=== PATIENT | female | born 1945 | race Caucasian/White ===

== ENCOUNTER 2023-10-19 06:29 | Day surgery (SDC) | payer OTHER, SELFPAY ==
[2023-10-13 10:01] LABS: Hematocrit 42.6 % (37.0-47.0); Hemoglobin 14.2 g/dL (12.0-16.0); Mean Corp Hgb Conc. 33.3 g/dL (33.0-37.0); Mean Corpuscular Hgb 29.3 pg (27.0-31.0); Mean Corpuscular Volume 87.8 fL (81.0-99.0); Mean Platelet Volume 9.3 fL (7.4-10.4); Platelet Count 354 10^3/uL (130-400); Red Blood Cell Count 4.85 10^6/uL (4.20-5.40); Red Cell Dist. Width 14.3 % (11.5-14.5); White Blood Cell Count 7.9 10^3/uL (4.8-10.8)
[2023-10-13 10:33] LABS: Blood Urea Nitrogen 22 mg/dl (7-17); Calcium 10.2 mg/dl (8.4-10.2); Carbon Dioxide 27 mmol/L (22-30); Chloride 100 mmol/L (98-107); Glucose 104 mg/dl (70-99); Potassium 4.8 mmol/L (3.5-5.1); eGFR 58.39
[2023-10-13 10:38] LABS: Sodium 138 mmol/L (135-145)
[2023-10-13 12:05] VITALS: BMI 30.1
--- NOTE | 2023-10-13 16:45 | PTCARENOTE ---
Abnormal EKG on 10/13/23. Dr. Singletary made aware. No intervention needed.
--- NOTE | 2023-10-14 11:45 | PTCARENOTE ---
Patients 10/13 GFR 58.39- Annika @ Dr. Kirk office notified
--- NOTE | 2023-10-15 10:21 | CM ---
Patient is scheduled for surgery with Dr. Dave on 10/19/23. Spoke with patient prior to surgery via telephone. Introduced role of case management. Patient reports that she lives with her in a multi story home. She has a first floor set up.
She functions independently and does not use any DME. She has a cane at home. She has never had VN services. She has a prescription plan and uses [facility] [address] in [place].
PCP is Dr. Kev Fallon.
Patient states that she will have support from her when she goes home. She has no discharge planning concerns at this time.
[2023-10-19] VITALS (10 sets, daily range): BP systolic 125–143; BP diastolic 63–80; BMI 30.1
[2023-10-19] MEDS: Pyridium 200 MG PO (08:34)
[2023-10-19] MEDS: NORMOSOL-R 1000 IV (08:34)
[2023-10-19] MEDS: HEPARIN 5000 UNITS SC (08:35)
[2023-10-19] MEDS: ACULAR 0.5% EYE DROPS 1 DROP OPHTH (15:30)
== END 2023-10-19 16:05 | disposition home or self-care (01) ==
LOC: SDS 06:29
PROVIDERS: ATTENDING PHYSICIAN Obstetrics & Gynecology; FAMILY PHYSICIAN Family Medicine
DX: N99.3 Prolapse of vaginal vault after hysterectomy (principal); N39.3 Stress incontinence (female) (male); N36.41 Hypermobility of urethra; Y83.8 Other surgical procedures as the cause of abnormal reaction of the patient, or of later complication, without mention of misadventure at the time of the procedure
CPT/HCPCS: 57425; 57250; 36415; 80048; 85027; 86850; 86900; 86901; 93005; C1763

== ENCOUNTER → 2024-08-29 11:39 | Outpatient (REF) | payer OTHER, SELFPAY | LOC: HWWDC 11:39 | PROVIDERS: ATTENDING PHYSICIAN Family Medicine | DX: Z12.31 Encounter for screening mammogram for malignant neoplasm of breast (principal) | CPT/HCPCS: 77063; 77067 ==

== ENCOUNTER 2025-03-21 10:11 | Outpatient (RCR) | payer OTHER, SELFPAY | END 2025-03-21 23:59 | disposition home or self-care (01) | LOC: RPT 10:11 | PROVIDERS: ATTENDING PHYSICIAN Family Medicine | DX: M51.9 Unspecified thoracic, thoracolumbar and lumbosacral intervertebral disc disorder (principal); Z73.6 Limitation of activities due to disability | CPT/HCPCS: 97010; 97110; 97112; 97140; 97162 ==

== ENCOUNTER 2025-03-30 10:30 | Outpatient (RCR) | payer OTHER, SELFPAY | END 2025-04-05 12:33 | disposition home or self-care (01) | LOC: RPT 10:30 | PROVIDERS: ATTENDING PHYSICIAN Family Medicine | DX: M51.9 Unspecified thoracic, thoracolumbar and lumbosacral intervertebral disc disorder (principal); Z73.6 Limitation of activities due to disability; M62.81 Muscle weakness (generalized) | CPT/HCPCS: 97110; 97112 ==